=== PATIENT | male | born 1965 | race Caucasian/White ===

== ENCOUNTER 2019-02-08 09:06 | Inpatient (IN) | payer MEDICARE, OTHER ==
[2019-02-05 10:49] VITALS: BMI 28.1
[2019-02-08 10:25] LABS: Hemoglobin 16.2 g/dL (14.0-18.0); Mean Corpuscular HGB CONC 33.2 g/dL (32.0-36.0); Mean Corpuscular Volume 84.2 fL (78.0-98.0); Mean Platelet Volume 7.5 fL (7.4-10.4); Platelet Count 228 thou/uL (130-400); RBC Distribution Width 12.2 % (11.5-14.5); Red Blood Cell (RBC) Count 5.79 mill/uL (4.70-6.10); White Blood Cell (WBC) Count 6.9 thou/uL (4.8-10.8)
[2019-02-08 10:45] LABS: Anion Gap 12 mmol/L (10-20); BUN (Urea Nitrogen) 19 mg/dL (8.4-25.7); Calc. Creatinine Clearance 103 mL/min (70-130); Carbon Dioxide 25 mmol/L (22-29); Chloride 105 mmol/L (98-107); Estimated GFR-MDRD 81; Glucose 86 mg/dL (70-105); Potassium 4.2 mmol/L (3.5-5.1); Sodium 138 mmol/L (136-145)
[2019-02-08] MEDS ORDERED: Fentanyl 100 MCG/2 ML VIAL ONE ×5 (10:46→15:08)
[2019-02-08] MEDS ORDERED: Sodium Chloride 0.9% 10 ML ONE (12:28)
[2019-02-08] MEDS ORDERED: HYDROmorphone 2 MG/ML VIAL ONE (14:21)
[2019-02-08] MEDS ORDERED: Morphine 4 MG/ML VIAL ONE (14:43)
[2019-02-08] MEDS ORDERED: Promethazine HCl 25 MG/ML VIAL SLOW IVP PRN (14:46)
[2019-02-08] MEDS ORDERED: Promethazine HCl 25 MG/ML VIAL IM PRN (14:46)
[2019-02-08] MEDS ORDERED: Ondansetron HCl/PF 4 MG/2 ML Vial IVP PRN (14:46)
[2019-02-08] MEDS ORDERED: HYDROmorphone 2 MG/ML VIAL SLOW IVP PRN (14:46)
[2019-02-08] MEDS ORDERED: Promethazine HCl 25 MG/ML VIAL ONE (15:07)
[2019-02-08] MEDS ORDERED: Lidocaine 1% PF 5 ML VIAL ONE (16:06)
[2019-02-08] MEDS ORDERED: Dexamethasone 20 MG/5 ML VIAL ONE (16:06)
[2019-02-08] MEDS ORDERED: PROPOFOL 200 MG/20 ML VIAL ONE (16:06)
[2019-02-08] MEDS ORDERED: Ondansetron PF 4 MG/2 ML Vial ONE (16:06)
[2019-02-08] MEDS ORDERED: Glycopyrrolate 0.2 MG/ML 5 ML SYRINGE ONE (16:06)
[2019-02-08] MEDS ORDERED: PHENYLEPHRINE-NS 100 MCG/ML 10 ML SYRINGE ONE (16:06)
[2019-02-08] MEDS ORDERED: Rocuronium Bromide 10 MG/ML (10ML VIAL) ONE (16:06)
[2019-02-08] MEDS ORDERED: diphenhydrAMINE 50 MG/ML VIAL IVP PRN (16:36)
[2019-02-08] MEDS ORDERED: Morphine 4 MG/ML VIAL SLOW IVP PRN ×2 (16:36→16:45)
[2019-02-08] MEDS ORDERED: diphenhydrAMINE 25 MG CAP PO PRN (16:36)
[2019-02-08] MEDS ORDERED: HYDROcodone/Acetaminophen 10/325 mg Tablet PO PRN (16:36)
[2019-02-08] MEDS ORDERED: Ondansetron PF 4 MG/2 ML Vial IM PRN (16:36)
[2019-02-08] MEDS ORDERED: traMADol HCl 50 MG TAB PO PRN (16:36)
[2019-02-08] MEDS ORDERED: Mag-Al 1200 mg/1200 mg/30 ML UDCUP PO PRN (16:36)
[2019-02-08] MEDS ORDERED: Milk Of Magnesia 30 ML UDCUP PO PRN (16:36)
[2019-02-08] MEDS: Sodium Chloride 0.9% 1,000 ML IV SCH ×2 (16:48→20:48)
--- NOTE | 2019-02-08 17:19 | EKG ---
Test Reason : PREOP Blood Pressure : / mmHG Vent. Rate : 059 BPM Atrial Rate : 059 BPM P-R Int : 214 ms QRS Dur : 088 ms QT Int : 392 ms P-R-T Axes : 047 -11 014 degrees QTc Int : 388 ms Sinus bradycardia with 1st degree A-V block Otherwise normal ECG No previous ECGs available Confirmed by DR. Indy OCHOA ([id number]) on 02/08/2019 5:18:51 PM Referred By: [email or web address] Confirmed By:DR. Indy OCHOA
[2019-02-08] MEDS: HYDROcodone/Acetaminophen 10/325 mg Tablet PO PRN ×2 (17:58→22:04)
[2019-02-08] MEDS ORDERED: CEFAZOLIN 2 GM in Premix Bag 1 BAG IVPB SCH (18:00)
--- NOTE | 2019-02-08 20:36 | OP ---
DATE OF PROCEDURE: 02/08/2019 ENVIRONMENTAL PROJECTS ADVISOR: Rayray Ibanez PA-C PROCEDURES PERFORMED: L4-5 laminectomy; left-sided facetectomy, foraminotomy, and diskectomy; interbody arthrodesis; intervertebral biomechanical device; local morselized autograft; demineralized bone matrix; posterolateral arthrodesis; pedicle screw instrumentation, L4-5. DESCRIPTION OF PROCEDURE: The patient was brought to the operating room and intubated. He was rolled in a prone position on gel-filled chest rolls. An incision was made exposing L4 and L5 bilaterally, and the level was confirmed by x-ray. We performed complete L5 and inferior L4 laminectomy, completely decompressing the neural elements. We performed left L4-5 laminectomy, facetectomy, and foraminotomy, completely decompressing the left L4 nerve root and the foraminal course. The disk itself was incised and debrided, and a complete decompression was achieved. The bony endplates were decorticated for the purpose of arthrodesis, and appropriate-sized intervertebral biomechanical PEEK devices were brought into the field, filled with demineralized bone matrix and local morselized autograft and tapped in place securely at L4-5. Next, pedicle screws were placed at left L4 and left L5 using lateral fluoroscopic guidance, and the position was confirmed by x-ray. The yareli was secured between the screws, connected by nuts, which were final tightened. The wound was then extensively irrigated and MAC hemostasis was secured. A combination of demineralized bone matrix and local morselized autograft was laid over the lamina and posterolateral surfaces for the purpose of arthrodesis. Vancomycin powder was applied, and the wound was then closed in anatomic layers over drain. Job ID: [id number]
[2019-02-08] MEDS: traMADol HCl 50 MG TAB PO PRN (20:55)
[2019-02-08] MEDS: tiZANidine HCl 4 MG TAB PO PRN (20:55)
[2019-02-08] MEDS: CEFAZOLIN 2 GM in Premix Bag 1 BAG IVPB SCH (21:01)
[2019-02-09] MEDS: HYDROcodone/Acetaminophen 10/325 mg Tablet PO PRN ×2 (04:28→09:28)
[2019-02-09] MEDS: CEFAZOLIN 2 GM in Premix Bag 1 BAG IVPB SCH (05:46)
[2019-02-09] MEDS: traMADol HCl 50 MG TAB PO PRN (07:15)
[2019-02-09] MEDS: tiZANidine HCl 4 MG TAB PO PRN (07:15)
[2019-02-09 10:16] VITALS: BP 110/75; TEMP 98.5
--- NOTE | 2019-02-09 15:24 | DIS ---
DATE OF ADMISSION: 02/08/2019 DATE OF DISCHARGE: 02/09/2019 The patient is a 53-year-old male, who underwent L4-L5 decompression and fusion on 02/08/2019. Following the surgery, he was transitioned to the Med/Surg floor, where his pain has been well controlled with p.o. medications. He is tolerating a regular diet, and he is voiding appropriately. He did have NALDO drain placed intraoperatively and this has trended down with 75 mL out overnight. On exam this morning, he is awake, alert, and comfortable. He has free active range of motion of all extremities. No focal motor weakness. He has a small amount of dark red blood in the NALDO drain. There is a tiny bit of shadow at the top of the dressing. No active incisional drainage is appreciated. We will plan to remove his NALDO drain and dismiss the patient to home. I have discussed home care precautions and will follow up with the patient in 2 weeks. Job ID: [id number]
== END 2019-02-09 10:00 | disposition home or self-care (01) | DRG 455 ==
LOC: SURG A 09:06
PROVIDERS: ADMIT Neurological Surgery; ATTEND Neurological Surgery
PROC: 0SG00AJ Fusion of Lumbar Vertebral Joint with Interbody Fusion Device, Posterior Approach, Anterior Column, Open Approach (ICD-10-PCS; principal; 2019-02-08)
PROC: 0SG0071 Fusion of Lumbar Vertebral Joint with Autologous Tissue Substitute, Posterior Approach, Posterior Column, Open Approach (ICD-10-PCS; 2019-02-08)
PROC: 0SB20ZZ Excision of Lumbar Vertebral Disc, Open Approach (ICD-10-PCS; 2019-02-08)
DX: M48.061 Spinal stenosis, lumbar region without neurogenic claudication (principal); M54.16 Radiculopathy, lumbar region; E78.5 Hyperlipidemia, unspecified; G47.30 Sleep apnea, unspecified; Z87.891 Personal history of nicotine dependence; Z79.899 Other long term (current) drug therapy
CPT/HCPCS: 76000; 80048; 85027; 93005; 93010; C1713; C1768; J0690; J1100; J1170; J2001; J2270; J2405; J2550; J2704; J3010; J3370; J3490

== ENCOUNTER 2019-02-23 10:00 | Outpatient (CLI) | payer MEDICARE, OTHER ==
--- NOTE | 2019-02-23 10:53 | RAD ---
XR Lumbar Spine 2 Or 3 View History: M [age] lumbar radiculopathy Comparison: None Findings: Left unilateral posterior spinal fusion hardware at L4-L5 with laminectomy changes. Adequat e position of the discectomy spacers. No hardware complication. Paraspinal soft tissues are unremarkable. Impression: Satisfactory postoperative appearance.
== END 2019-02-23 10:01 | disposition home or self-care (01) ==
LOC: TBSIIMAG 10:00
PROVIDERS: ATTEND Neurological Surgery
DX: M54.16 Radiculopathy, lumbar region (principal); Z98.1 Arthrodesis status
CPT/HCPCS: 72100